=== PATIENT | female | born 1985 | race Caucasian/White ===

== ENCOUNTER 2016-05-11 05:58 | Inpatient (IN) | payer MEDICAID ==
[2016-05-11] MEDS ORDERED: ceFAZolin SODIUM 2 GM in DEXTROSE 5 % IN WATER 100 ML IV ONE ×2 (06:12)
[2016-05-11] MEDS ORDERED: OXYTOCIN 20 UNITS in RINGERS SOLUTION,LACTATED 1,000 ML IV ONE (06:12)
[2016-05-11] MEDS ORDERED: RINGERS SOLUTION,LACTATED 1,000 ML IV PRN (06:12)
[2016-05-11] MEDS ORDERED: RINGERS SOLUTION,LACTATED 1,000 ML IV ONE ×2 (06:15→09:30)
[2016-05-11 06:30] LABS: Hematocrit 33.4 % (37.0-47.0); Hemoglobin 11.3 gm/dL (12.5-16.0); Mean Corpuscular Hemoglobin 30.8 pg (27-31); Mean Corpuscular Hgb Conc 33.8 g/dl (32-36); Neutrophil # 8.9 K/mm3 (1.3-6.0); Neutrophil % 69.8 % (42-75.0); Platelet Count 273 K/mm3 (150-450); Red Blood Count 3.67 M/mm3 (4.2-5.4); Red Cell Distribution Width 15.8 % (11.5-14.0); White Blood Count 12.7 K/mm3 (4.0-10.5)
[2016-05-11] MEDS ORDERED: ceFAZolin SODIUM 2 GM in DEXTROSE 5 % IN WATER 50 ML IV ONE ×2 (06:30)
[2016-05-11 06:50] LABS: Cocaine Ur Negative (NEGATIVE); Urine Barbiturate Negative (NEGATIVE); Urine Benzodiazepines Negative (NEGATIVE); Urine Opiates Negative (NEGATIVE); Urine PCP Negative (NEGATIVE); Urine THC Negative (NEGATIVE)
[2016-05-11] MEDS ORDERED: RINGERS SOLUTION,LACTATED 600 ML IV ONE (07:45)
[2016-05-11] MEDS ORDERED: SENNOSIDES 8.6 MG TABLET PO PRN (09:30)
[2016-05-11] MEDS ORDERED: oxyCODONE HCL/ACETAMINOPHEN 1 TAB TABLET PO PRN (09:30)
[2016-05-11] MEDS ORDERED: diphenhydrAMINE HCL 25 MG CAPSULE PO PRN (09:30)
[2016-05-11] MEDS ORDERED: ONDANSETRON HCL/PF 2 MG/ML VIAL IV PRN (09:30)
[2016-05-11] MEDS ORDERED: BISACODYL 10 MG SUPP.RECT RC PRN (09:30)
[2016-05-11] MEDS ORDERED: HYDROmorphone HCL 4 MG/ML DISP.SYRIN IV ONE (09:35)
[2016-05-11] MEDS ORDERED: HYDROmorphone HCL 2 MG/ML VIAL IV ONE (09:35)
--- NOTE | 2016-05-11 10:36 | OR ---
Operative Report - Dictated Report Narrative: DATE OF PROCEDURE: 05/11/2016 PROCEDURE: 1. Repeat low transverse section ANESTHESIA: Spinal. PREOPERATIVE DIAGNOSES: 1. Intrauterine at 39 weeks. 2. Prior sections x 2 3. Late and limited care. 4. Smoker 1PPD. POSTOPERATIVE DIAGNOSES: 1. Intrauterine at 39 weeks. 2. Prior sections x 2 3. Late and limited care. 4. Smoker 1PPD. SURGEON: Saroj Oconnell M.D. SAWDUST MACHINE OPERATOR: Nas FINDINGS: 1. Male infant in cephalic presentation. Clear amniotic fluid. Weight 2846 g, 6 lbs 4.3 oz, 9/9. Time of delivery: 8:29 2. Uterus, both tubes and both ovaries appeared normal. 3. Dense adhesions in low uterine segment and bladder adherent high in the lower uterine segment. SPECIMENS: none DRAIN: Mooney to gravity. URINE OUTPUT: 300 ml. BLOOD LOSS: 500 ml. IV FLUIDS: 1500 ml COMPLICATIONS: None. Description of Operative Procedure: The patient was consented prior to the operation and was taken to the operating room. Spinal anesthesia was performed and it was successful. The patient was then placed in the dorsal supine position with leftward tilt. Sequential compression device was placed on the lower extremities and a Mooney catheter was placed into the bladder using sterile technique. Two grams of Ancef was given prior to the start of anesthesia. The abdomen was prepped with Chloraprep and draped in the usual sterile fashion. A time-out was conducted to confirm the correct patient for the correct procedure. Anesthesia was tested and appeared adequate. A Pfannenstiel skin incision was marked at the upper edge of the prior scar and the incision was made with a scalpel. The incision was carried through the subcutaneous layer to the fascia. The fascia was nicked at the midline and extended bilaterally with Morales scissors. The lower edge of the fascia incision was grasped with Lisa clamps, elevated, and the underlying rectus muscles and pyramidalis muscles were dissected off. Dense scar tissues were noted here and these were lysed carefully. The Lisa clamps were repositioned to the upper edge of the fascia incision, which was tented up and dissected off from the rectus muscles. The rectus muscles were elevated with two Allis clamps on each side and the midline scar was incised sharply with a Scalpel and dissected. The peritoneum was entered sharply. The peritoneal incision was extended superiorly and inferiorly with good visualization of the bladder. A bladder blade was inserted. The vesicouterine peritoneum was identified, grasped with a smooth pick-ups, and entered sharply with Matzenbaum scissors. The incision was extended laterally, and a bladder flap was created. However, the bladder was densely adherent to the lower uterine segment and the bladder was 1.5 cm away from the planned uterine incision. The bladder blade was repositioned. The lower uterine segment was incised in a transverse fashion with the scalpel, and the incision was extended laterally by stretching. The bladder blade was removed. The amniotic sac was ruptured with clear fluid. The baby was in cephalic presentation. The head was elevated through the incision. Fundal pressure was applied and the baby was delivered atraumatically. Baby cried immediately after . The cord was clamped and cut. The was handed off to the nurse and family practice md in attendance. Cord blood was obtained. The placenta was removed manually. The uterus was then exteriorized, and cleared off clots and membrane. The uterine incision was closed with 0 vicryl in a running-lock fashion. A second imbricating layer with 2-0 Vicryl was placed in a continuous non-lock fashion for reinforcement. Good hemostasis and reapproximation were obtained. The posterior cul-de-sac was cleared off clots and fluid. The uterus was returned to the abdomen. The gutters were cleared of blood clots and fluid. The peritoneum was closed with 2-0 Vicryl. The rectus muscle was inspected and hemostatic. The fascia was reapproximated with #1 Vicryl in running fashion. The subcutaneous layer was irrigated with saline. The skin was closed with 3-0 Monocryl suture in a subcuticular fashion. The incision was covered with Benzoid /Steri strips. Telfa and ABD was placed over the incision with pressuring dressing. Sponge, lap, needle and instrument counts were correct. The patient tolerated the procedure well. The patient was taken to the recovery room in stable condition. Saroj Oconnell MD History for [facility] Definition: * The number of deliveries resulting in a live the patient experienced prior to current hospitalization * The previous delivery of live twins or any live multiple gestation is considered one live event. *If primagravida or nulliparous is documented select zero for the number of previous live births. Live Events: 2
[2016-05-11] MEDS: oxyCODONE HCL/ACETAMINOPHEN 1 TAB TABLET PO PRN ×5 (11:33→23:44)
[2016-05-11] MEDS: IBUPROFEN 800 MG TABLET PO PRN ×3 (11:33→23:44)
[2016-05-11] MEDS: SIMETHICONE 80 MG TAB.CHEW PO PRN (14:48)
[2016-05-11] MEDS: DOCUSATE SODIUM 100 MG CAPSULE PO SCH (20:56)
[2016-05-12] MEDS: oxyCODONE HCL/ACETAMINOPHEN 1 TAB TABLET PO PRN ×6 (03:02→21:02)
[2016-05-12 05:51] LABS: Hemoglobin 9.3 gm/dL (12.5-16.0); Mean Cell Volume 92.1 fl (78-100); Mean Corpuscular Hemoglobin 30.6 pg (27-31); Mean Corpuscular Hgb Conc 33.2 g/dl (32-36); Mean Platelet Volume 9.4 fl (6.0-9.5); Neutrophil # 9.5 K/mm3 (1.3-6.0); Neutrophil % 75.6 % (42-75.0); Platelet Count 242 K/mm3 (150-450); Red Blood Count 3.04 M/mm3 (4.2-5.4); White Blood Count 12.6 K/mm3 (4.0-10.5)
[2016-05-12] MEDS: IBUPROFEN 800 MG TABLET PO PRN ×3 (07:26→20:03)
[2016-05-12] MEDS: DOCUSATE SODIUM 100 MG CAPSULE PO SCH ×2 (10:09→20:03)
--- NOTE | 2016-05-12 12:13 | PN ---
Subjective - Date and Time Seen Date: 05/12/16 Subjective Narrative: post op day 1, s/p repeat c/s. doing well. ambulating. normal lochia. breast feeding. pain controlled. Objective - Vitals Vitals: Last Vital Signs Temp 36.8 C 05/12/16 07:25 Pulse 83 05/12/16 07:25 Resp 16 05/12/16 07:25 BP 134/69 05/12/16 07:25 Pulse Ox 99 05/12/16 07:25 - Abnormal Lab Findings Abnormal Lab Findings: Abnormal Lab Results 05/12/16 Range/Units 05:35 WBC 12.6 H (4.0-10.5) K/mm3 RBC 3.04 L (4.2-5.4) M/mm3 Hgb 9.3 L (12.5-16.0) gm/dL Hct 28.0 L (37.0-47.0) % RDW 16.0 H (11.5-14.0) % Immature Gran % (Auto) 1.00 H (0.001-0.429) % Immature Gran # (Auto) 0.12 H (0.000-0.0310) K/mm3 Neutrophils % 75.6 H (42-75.0) % Lymphocytes % 12.4 L (20-51) % Monocytes % 10.2 H (0.0-9) % Neutrophils # 9.5 H (1.3-6.0) K/mm3 Monocytes # 1.3 H (0.0-1.0) k/mm3 - Exam Constitutional: Present: Alert, Oriented x3, Cooperative Respiratory: Present: no respiratory distress Cardiovascular/Chest: Present: normal peripheral pulses Abdomen: Present: soft, nondistended, other - fundus firm. incision: dressing dry and clean. Extremity: Present: normal range of motion, no pedal edema, no calf tenderness Skin Exam: Present: normal color, warm/dry, no cyanosis Eye contact: Present: cooperative, normal speech Cauti Physician Documentation - Urinary Catheter Management Urethral (Mooney) Date of Insertion: 05/11/16 Time of Insertion: 08:00 Assessment/Plan Plan Narrative: A: post op day 1, s/p repeat c/s, stable. Plan: routine post op care. ambulation encouraged. Saroj Oconnell MD
[2016-05-12] MEDS: SIMETHICONE 80 MG TAB.CHEW PO PRN (21:01)
[2016-05-13] MEDS: oxyCODONE HCL/ACETAMINOPHEN 1 TAB TABLET PO PRN ×6 (01:18→22:50)
[2016-05-13] MEDS: IBUPROFEN 800 MG TABLET PO PRN ×3 (02:32→18:07)
[2016-05-13] MEDS: DOCUSATE SODIUM 100 MG CAPSULE PO SCH ×2 (09:16→20:29)
--- NOTE | 2016-05-13 11:36 | PN ---
Subjective - Date and Time Seen Date: 05/13/16 Subjective Narrative: post op day 2, s/p repeat c/s. feels distended. no BM or flatus. normal lochia. . pain controlled. Objective - Vitals Vitals: Last Vital Signs Temp 36.7 C 05/13/16 07:11 Pulse 98 05/13/16 07:11 Resp 18 05/13/16 07:11 BP 123/75 05/13/16 07:11 Pulse Ox 97 05/13/16 07:11 - Exam Constitutional: Present: Alert, Oriented x3, Cooperative Respiratory: Present: no respiratory distress Cardiovascular/Chest: Present: normal peripheral pulses Abdomen: Present: soft, other - distended, bowel sound present. incision: dry and clean with steri-strips. Extremity: Present: normal range of motion, no pedal edema, no calf tenderness Skin Exam: Present: normal color, warm/dry, no cyanosis Eye contact: Present: cooperative, good eye contact, normal speech Cauti Physician Documentation - Urinary Catheter Management Urethral (Mooney) Date of Insertion: 05/11/16 Time of Insertion: 08:00 Assessment/Plan Plan Narrative: A: POD#2, s/p repeat c/s with distended abdomen, no flatus or BM. Plan: encouraged ambulation. will give ducolax suppository for BM. Saroj Oconnell MD
[2016-05-13 15:14] LABS: Cocaine Ur Negative (NEGATIVE); Urine Barbiturate Negative (NEGATIVE); Urine Benzodiazepines Negative (NEGATIVE); Urine Opiates Positive (NEGATIVE); Urine PCP Negative (NEGATIVE); Urine THC Negative (NEGATIVE)
[2016-05-14] MEDS: oxyCODONE HCL/ACETAMINOPHEN 1 TAB TABLET PO PRN ×3 (02:07→11:09)
[2016-05-14] MEDS: IBUPROFEN 800 MG TABLET PO PRN ×2 (02:07→09:47)
[2016-05-14 07:30] VITALS: BP 133/85
[2016-05-14] MEDS: DOCUSATE SODIUM 100 MG CAPSULE PO SCH (09:47)
--- NOTE | 2016-05-14 12:36 | PN ---
Subjective - Date and Time Seen Date: 05/14/16 Subjective Narrative: post op day 3, s/p repeat c/s. doing well. passing flatus, but no BM. normal lochia. ambulating well. pain controlled. Objective - Vitals Vitals: Last Vital Signs Temp 36.7 C 05/14/16 06:30 Pulse 82 05/14/16 06:30 Resp 20 05/14/16 06:30 BP 133/85 05/14/16 06:30 Pulse Ox 100 05/14/16 06:30 - Abnormal Lab Findings Abnormal Lab Findings: Abnormal Lab Results 05/13/16 Range/Units 15:00 Urine Opiates Screen Positive H (NEGATIVE) - Exam Constitutional: Present: Alert, Oriented x3, Cooperative Respiratory: Present: no respiratory distress Cardiovascular/Chest: Present: normal peripheral pulses Abdomen: Present: Normal bowel sounds - fundus firm below umbilicus. Incision: dry and clean with steri strips., soft, nondistended, other Extremity: Present: normal range of motion, no pedal edema, no calf tenderness Skin Exam: Present: normal color, warm/dry, no cyanosis Eye contact: Present: cooperative, good eye contact, normal speech Cauti Physician Documentation - Urinary Catheter Management Urethral (Mooney) Date of Insertion: 05/11/16 Time of Insertion: 08:00 Assessment/Plan Plan Narrative: A: post op day 3, s/p repeat c/s, stable and well. Plan: will discharge home today. Saroj Oconnell MD
== END 2016-05-14 14:30 | disposition home or self-care (01) | DRG 765 ==
LOC: OB 05:58
PROVIDERS: ADMIT Obstetrics & Gynecology; ATTEND Obstetrics & Gynecology
PROC: 4A1HXCZ Monitoring of Products of Conception, Cardiac Rate, External Approach (ICD-10-PCS; 2016-05-11)
PROC: 10D00Z1 Extraction of Products of Conception, Low, Open Approach (ICD-10-PCS; principal; 2016-05-11 08:00)
DX: O34.211 Maternal care for low transverse scar from previous cesarean delivery (principal); O99.324 Drug use complicating childbirth; F12.90 Cannabis use, unspecified, uncomplicated; O99.334 Smoking (tobacco) complicating childbirth; Z3A.39 39 weeks gestation of pregnancy; Z37.0 Single live birth
CPT/HCPCS: 36415; 59025; 59510; 85025; 86850; 86900; G0479